=== PATIENT | male | born 1985 ===

== ENCOUNTER 2022-11-05 16:30 | Emergency (ER) | payer OTHER, SELFPAY ==
[2022-11-05] VITALS (22 sets, daily range): BP systolic 111–141; BP diastolic 58–79; PULSE 90–122; RESP 16–24; TEMP 36.5; O2SAT 95–100; BMI 31.4
--- NOTE | 2022-11-05 16:43 | DI.RAD.S_ITS ---
PROCEDURE: XR CHEST 1V INDICATIONS: chest pain TECHNIQUE: One view of the chest was acquired. COMPARISON: None. FINDINGS: Surgical changes and devices: None. Lungs and pleura: Lungs are clear. No pleural effusions or pneumothorax. Mediastinum: Mediastinal contours appear normal. Heart size is normal. Bones and chest wall: No suspicious bony lesions. Overlying soft tissues appear unremarkable. IMPRESSION: No acute cardiopulmonary pathology. Dictated by: Dany Navarro M.D. on 11/05/2022 at 17:04 Approved by: Dany Navarro M.D. on 11/05/2022 at 17:05
--- NOTE | 2022-11-05 17:07 | ED_ITS ---
HPI - Chest Pain <Boby Vail DO - Last Filed: 11/07/22 07:14> General Chief Complaint: Chest Pain Stated Complaint: IFP diarreah/SOB/PAIN LT SHOULDER TO LT HAND Time Seen by Provider: 11/05/22 17:03 Source: patient Mode of arrival: Wheelchair Limitations: no limitations History of Present Illness HPI narrative: patient is a 37-year-old male who is brought over from the walk-in clinic for evaluation of diarrhea and shortness of breath and pain in the left side of his chest and tingling to his left hand. States he is still feeling nauseous. No vomiting. No rashes. No recent travel. Otherwise healthy. Has not tried anything for symptoms prior to arrival. Related Data Home Medications Medication Instructions Recorded Confirmed lisdexamfetamine 30 mg capsule 30 mg PO QAM 06/26/21 06/26/21 (Vyvanse) Previous Rx's Medication Instructions Recorded ondansetron 4 mg disintegrating 4 mg PO TID-QID PRN nausea and 11/05/22 tablet vomiting #10 tabs pantoprazole 40 mg tablet,delayed 40 mg PO DAILY #30 tabs 11/05/22 release (Protonix) Allergies Allergy/AdvReac Type Severity Reaction Status Date / Time No Known Drug Allergies Allergy Verified 11/05/22 16:45 Review of Systems <DO Arjun Edwards Last Filed: 11/07/22 07:14> Constitutional Constitutional: Reports system reviewed and no additional complaints, except as documented Cardiovascular Cardiovascular: Reports system reviewed and no additional complaints, except as documented Respiratory Respiratory: Reports system reviewed and no additional complaints, except as documented Gastrointestinal Gastrointestinal: Reports system reviewed and no additional complaints, except as documented Integumentary/Breasts Skin/Breast: Reports system reviewed and no additional complaints, except as documented Neurologic Neurologic: Reports system reviewed and no additional complaints, except as documented Hematologic/Lymphatic On Anticoagulants: No Patient History <DO Arjun Edwards Last Filed: 11/07/22 07:14> Social History Smoking Status: Never smoker Smoking Status: Never smoker alcohol intake frequency: holidays/special occasions only Substance Use Type: does not use Exam <DO Arjun Edwards Last Filed: 11/07/22 07:14> Initial Vital Signs Initial Vital Signs: Vital Signs Temperature 97.7 F 11/05/22 16:40 Pulse Rate 122 H 11/05/22 16:40 Respiratory Rate 16 11/05/22 16:40 Blood Pressure 118/74 11/05/22 16:40 Pulse Oximetry 98 11/05/22 16:40 Oxygen Delivery Method Room Air 11/05/22 16:40 Const General: cooperative and well developed HENNJ Head: normal to inspection and normocephalic Resp Effort & Inspection: normal respiratory effort Auscultation: clear to auscultation bilaterally Cardio Rate: tachycardic GI Inspection: normal to inspection Skin General: no rashes or lesions noted Neuro General: patient alert, patient awake and moves all extremities Extrem General: normal to inspection and capillary refill normal <Danial Murillo DO - Last Filed: 11/05/22 22:22> Initial Vital Signs Initial Vital Signs: Vital Signs Temperature 97.7 F 11/05/22 16:40 Pulse Rate 122 H 11/05/22 16:40 Respiratory Rate 16 11/05/22 16:40 Blood Pressure 118/74 11/05/22 16:40 Pulse Oximetry 98 11/05/22 16:40 Oxygen Delivery Method Room Air 11/05/22 16:40 Scores <Boby Vail DO - Last Filed: 11/07/22 07:14> HEART Score Heart Score Total: 0 <DO Arjun Banuelos Last Filed: 11/05/22 22:22> HEART Score Heart Score history: Slightly Suspicious Heart Score EKG: Normal Heart Score Age: < 45 years old Heart Score risk factors: No known risk factors Heart Score troponin: < or = to normal limit Heart Score Total: 0 Course <DO Arjun Edwards Last Filed: 11/07/22 07:14> Orders Ordered: Discontinued Medications Aspirin (Aspirin 81 Mg Chew Tab) 324 mg PO NOW ONE Stop: 11/05/22 16:44 Last Admin: 11/05/22 18:05 Dose: Not Given Documented By: MIGUEL Sodium Chloride (Normal Saline 0.9%) 1,000 mls @ 1,000 mls/hr IV BOLUS ONE Stop: 11/05/22 18:05 Last Infusion: 11/05/22 19:25 Dose: 0 mls/hr Documented By: Admin: 11/05/22 18:04 Dose: 1,000 mls/hr Documented By: MIGUEL(2) Lactated Ringer's (Lactated Ringers) 1,000 mls @ 1,000 mls/hr IV BOLUS ONE Stop: 11/05/22 22:02 Last Infusion: 11/05/22 22:19 Dose: 0 mls/hr Documented By: Admin: 11/05/22 21:14 Dose: 1,000 mls/hr Documented By: SHAJI Ondansetron HCl (Ondansetron 4 Mg/2 Ml Inj) 4 mg IV NOW ONE Stop: 11/05/22 17:07 Last Admin: 11/05/22 18:03 Dose: 4 mg Documented By: MIGUEL(2) Vital Signs Vital signs: Vital Signs - 8 hr 11/05/22 16:40 11/05/22 17:02 11/05/22 17:03 Temperature 97.7 F Pulse Rate 122 H 109 H Respiratory Rate 16 18 Blood Pressure 118/74 141/79 H Pulse Oximetry 98 96 Oxygen Delivery Method Room Air 11/05/22 17:03 11/05/22 17:30 11/05/22 17:30 Temperature Pulse Rate 109 H 107 H Respiratory Rate 23 24 Blood Pressure 125/69 Pulse Oximetry 95 96 Oxygen Delivery Method 11/05/22 17:58 11/05/22 17:58 11/05/22 18:00 Temperature Pulse Rate 106 H Respiratory Rate 24 Blood Pressure 116/77 122/78 Pulse Oximetry 97 Oxygen Delivery Method 11/05/22 18:00 11/05/22 18:15 11/05/22 18:15 Temperature Pulse Rate 105 H 108 H Respiratory Rate 23 22 Blood Pressure 121/74 Pulse Oximetry 96 97 Oxygen Delivery Method 11/05/22 18:30 11/05/22 18:30 11/05/22 18:45 Temperature Pulse Rate 104 H 105 H Respiratory Rate 24 24 Blood Pressure 131/78 Pulse Oximetry 97 97 Oxygen Delivery Method 11/05/22 18:45 11/05/22 19:00 11/05/22 19:00 Temperature Pulse Rate 99 H Respiratory Rate 23 Blood Pressure 128/71 133/76 Pulse Oximetry 98 Oxygen Delivery Method 11/05/22 19:15 11/05/22 19:15 11/05/22 19:30 Temperature Pulse Rate 98 H Respiratory Rate Blood Pressure 124/67 124/71 Pulse Oximetry 99 Oxygen Delivery Method 11/05/22 19:30 11/05/22 19:45 11/05/22 19:45 Temperature Pulse Rate 96 H 99 H Respiratory Rate 20 23 Blood Pressure 111/65 Pulse Oximetry 100 99 Oxygen Delivery Method 11/05/22 20:00 11/05/22 20:00 11/05/22 20:15 Temperature Pulse Rate 98 H 90 Respiratory Rate 23 24 Blood Pressure 113/69 Pulse Oximetry 99 98 Oxygen Delivery Method 11/05/22 20:15 11/05/22 20:30 11/05/22 20:30 Temperature Pulse Rate 103 H Respiratory Rate 24 Blood Pressure 118/65 120/68 Pulse Oximetry 99 Oxygen Delivery Method 11/05/22 20:45 11/05/22 20:45 11/05/22 21:00 Temperature Pulse Rate 102 H Respiratory Rate 24 Blood Pressure 117/68 119/69 Pulse Oximetry 98 Oxygen Delivery Method Room Air 11/05/22 21:00 11/05/22 21:15 11/05/22 21:15 Temperature Pulse Rate 102 H 105 H Respiratory Rate 24 21 Blood Pressure 113/58 L Pulse Oximetry 98 98 Oxygen Delivery Method 11/05/22 21:30 11/05/22 21:30 11/05/22 21:45 Temperature Pulse Rate 100 H 97 H Respiratory Rate 19 24 Blood Pressure 116/67 Pulse Oximetry 99 99 Oxygen Delivery Method Room Air 11/05/22 21:45 11/05/22 22:00 11/05/22 22:00 Temperature Pulse Rate 97 H Respiratory Rate 24 Blood Pressure 119/68 117/69 Pulse Oximetry 99 Oxygen Delivery Method Room Air <Danial Murillo DO - Last Filed: 11/05/22 22:22> Orders Ordered: Discontinued Medications Aspirin (Aspirin 81 Mg Chew Tab) 324 mg PO NOW ONE Stop: 11/05/22 16:44 Last Admin: 11/05/22 18:05 Dose: Not Given Documented By: MIGUEL Sodium Chloride (Normal Saline 0.9%) 1,000 mls @ 1,000 mls/hr IV BOLUS ONE Stop: 11/05/22 18:05 Last Infusion: 11/05/22 19:25 Dose: 0 mls/hr Documented By: Admin: 11/05/22 18:04 Dose: 1,000 mls/hr Documented By: MIGUEL(2) Lactated Ringer's (Lactated Ringers) 1,000 mls @ 1,000 mls/hr IV BOLUS ONE Stop: 11/05/22 22:02 Last Infusion: 11/05/22 22:19 Dose: 0 mls/hr Documented By: Admin: 11/05/22 21:14 Dose: 1,000 mls/hr Documented By: SHAJI Ondansetron HCl (Ondansetron 4 Mg/2 Ml Inj) 4 mg IV NOW ONE Stop: 11/05/22 17:07 Last Admin: 11/05/22 18:03 Dose: 4 mg Documented By: MIGUEL(2) Vital Signs Vital signs: Vital Signs - 8 hr 11/05/22 16:40 11/05/22 17:02 11/05/22 17:03 Temperature 97.7 F Pulse Rate 122 H 109 H Respiratory Rate 16 18 Blood Pressure 118/74 141/79 H Pulse Oximetry 98 96 Oxygen Delivery Method Room Air 11/05/22 17:03 11/05/22 17:30 11/05/22 17:30 Temperature Pulse Rate 109 H 107 H Respiratory Rate 23 24 Blood Pressure 125/69 Pulse Oximetry 95 96 Oxygen Delivery Method 11/05/22 17:58 11/05/22 17:58 11/05/22 18:00 Temperature Pulse Rate 106 H Respiratory Rate 24 Blood Pressure 116/77 122/78 Pulse Oximetry 97 Oxygen Delivery Method 11/05/22 18:00 11/05/22 18:15 11/05/22 18:15 Temperature Pulse Rate 105 H 108 H Respiratory Rate 23 22 Blood Pressure 121/74 Pulse Oximetry 96 97 Oxygen Delivery Method 11/05/22 18:30 11/05/22 18:30 11/05/22 18:45 Temperature Pulse Rate 104 H 105 H Respiratory Rate 24 24 Blood Pressure 131/78 Pulse Oximetry 97 97 Oxygen Delivery Method 11/05/22 18:45 11/05/22 19:00 11/05/22 19:00 Temperature Pulse Rate 99 H Respiratory Rate 23 Blood Pressure 128/71 133/76 Pulse Oximetry 98 Oxygen Delivery Method 11/05/22 19:15 11/05/22 19:15 11/05/22 19:30 Temperature Pulse Rate 98 H Respiratory Rate Blood Pressure 124/67 124/71 Pulse Oximetry 99 Oxygen Delivery Method 11/05/22 19:30 11/05/22 19:45 11/05/22 19:45 Temperature Pulse Rate 96 H 99 H Respiratory Rate 20 23 Blood Pressure 111/65 Pulse Oximetry 100 99 Oxygen Delivery Method 11/05/22 20:00 11/05/22 20:00 11/05/22 20:15 Temperature Pulse Rate 98 H 90 Respiratory Rate 23 24 Blood Pressure 113/69 Pulse Oximetry 99 98 Oxygen Delivery Method 11/05/22 20:15 11/05/22 20:30 11/05/22 20:30 Temperature Pulse Rate 103 H Respiratory Rate 24 Blood Pressure 118/65 120/68 Pulse Oximetry 99 Oxygen Delivery Method 11/05/22 20:45 11/05/22 20:45 11/05/22 21:00 Temperature Pulse Rate 102 H Respiratory Rate 24 Blood Pressure 117/68 119/69 Pulse Oximetry 98 Oxygen Delivery Method Room Air 11/05/22 21:00 11/05/22 21:15 11/05/22 21:15 Temperature Pulse Rate 102 H 105 H Respiratory Rate 24 21 Blood Pressure 113/58 L Pulse Oximetry 98 98 Oxygen Delivery Method 11/05/22 21:30 11/05/22 21:30 11/05/22 21:45 Temperature Pulse Rate 100 H 97 H Respiratory Rate 19 24 Blood Pressure 116/67 Pulse Oximetry 99 99 Oxygen Delivery Method Room Air 11/05/22 21:45 11/05/22 22:00 11/05/22 22:00 Temperature Pulse Rate 97 H Respiratory Rate 24 Blood Pressure 119/68 117/69 Pulse Oximetry 99 Oxygen Delivery Method Room Air MDM - Chest Pain <Boby Vail DO - Last Filed: 11/07/22 07:14> Lab Data Attestation: I reviewed the patient's lab results. 11/05/22 16:51 11/05/22 16:51 Labs: Lab Results 11/05/22 11/05/22 11/05/22 Range/Units 16:51 16:51 16:51 WBC 7.7 (4.5-11.0) X10^3/uL RBC 5.38 (4.5-5.9) X10^6/uL Hgb 16.2 (13.5-17.5) g/dL Hct 45.9 (41-53) % MCV 85.4 (80-100) fL MCH 30.1 (26-34) PG MCHC 35.3 (30-36) % RDW 13.2 (11.6-14.8) % Plt Count 189 (150-400) X10^3/uL Neut % (Auto) 78.2 H (50-75) % Lymph % (Auto) 14.5 L (25-40) % [place] % (Auto) 5.9 (3-14) % Eos % (Auto) 0.4 L (2-4) % Baso % (Auto) 1.0 (0-2) % Neut # (Auto) 6000 (6740-2097) /uL Lymph # (Auto) 1100 (0965-4177) /uL [place] # (Auto) 500 (0-900) /uL Eos # (Auto) 0 (0-450) /uL Baso # (Auto) 100 (0-100) /uL PT 12.4 (10.1-12.7) SECONDS INR 1.1 (0.9-1.3) APTT 31 (26-36) SECONDS D-Dimer (<500) ng/ml Sodium 136 L (137-145) mmol/L Potassium 3.7 (3.4-5.1) mmol/L Chloride 100 (98-107) mmol/L Carbon Dioxide 22 (22-32) mmol/L BUN 17 (9-20) mg/dL Creatinine 1.37 H (0.66-1.25) mg/dL Estimated GFR > 60 (>60) mL/min BUN/Creatinine Ratio 12.4 (6-22) Glucose 107 H (70-100) mg/dL Calcium 9.2 (8.4-10.2) mg/dL Magnesium 1.7 (1.6-2.3) mg/dL Total Bilirubin 1.5 H (0.2-1.3) mg/dL AST 27 (17-59) IU/L ALT 36 (<50) IU/L Alkaline Phosphatase 67 (38-126) U/L Total Creatine Kinase 59 (55-170) U/L CK-MB (CK-2) TNP CK-MB (CK-2) Rel Index TNP Troponin I < 0.012 (0.01-0.034) ng/mL Total Protein 7.6 (6.3-8.2) g/dL Albumin 4.8 (3.5-5.0) g/dL Globulin 2.8 (1.7-4.1) g/dL Albumin/Globulin Ratio 1.7 (1.0-2.8) Lipase 63 (23-300) U/L Stl C. cayetanensis PCR (Not Detect) Stool Rotavirus (PCR) (Not Detect) Stool Adenovirus (PCR) (Not Detect) Stool Astrovirus (PCR) (Not Detect) Stool Cryptosporidium PCR (Not Detect) Stl E.coli Shiga Tox PCR (Not Detect) St Sh/Enteroin Ecoli PCR Stool E coli O157 PCR (Not Detect) Stl Enterotoxigenic E PCR (Not Detect) Stool EPEC (PCR) (Not Detect) Stl E. histolytica PCR (Not Detect) Stool Giardia Lamblia PCR (Not Detect) Stool Sapovirus (PCR) (Not Detect) Stl P. shigelloides PCR (Not Detect) St Y.enterocolitica PCR (Not Detect) Stool Vibrio (PCR) (Not Detect) Stl Vibrio cholerae PCR (Not Detect) Stl Enteroaggr Ecoli PCR (Not Detect) Stl Norovirus GI/GII PCR (Not Detect) Campylobacter (PCR) (Not Detect) C. difficile Tox (PCR) (Not Detect) SARS-CoV-2 (PCR) (Negative) Salmonella (PCR) (Not Detect) 11/05/22 11/05/22 11/05/22 Range/Units 17:40 19:20 21:15 WBC (4.5-11.0) X10^3/uL RBC (4.5-5.9) X10^6/uL Hgb (13.5-17.5) g/dL Hct (41-53) % MCV (80-100) fL MCH (26-34) PG MCHC (30-36) % RDW (11.6-14.8) % Plt Count (150-400) X10^3/uL Neut % (Auto) (50-75) % Lymph % (Auto) (25-40) % [place] % (Auto) (3-14) % Eos % (Auto) (2-4) % Baso % (Auto) (0-2) % Neut # (Auto) (1797-9906) /uL Lymph # (Auto) (6816-5445) /uL [place] # (Auto) (0-900) /uL Eos # (Auto) (0-450) /uL Baso # (Auto) (0-100) /uL PT (10.1-12.7) SECONDS INR (0.9-1.3) APTT (26-36) SECONDS D-Dimer 391 (<500) ng/ml Sodium (137-145) mmol/L Potassium (3.4-5.1) mmol/L Chloride (98-107) mmol/L Carbon Dioxide (22-32) mmol/L BUN (9-20) mg/dL Creatinine (0.66-1.25) mg/dL Estimated GFR (>60) mL/min BUN/Creatinine Ratio (6-22) Glucose (70-100) mg/dL Calcium (8.4-10.2) mg/dL Magnesium (1.6-2.3) mg/dL Total Bilirubin (0.2-1.3) mg/dL AST (17-59) IU/L ALT (<50) IU/L Alkaline Phosphatase (38-126) U/L Total Creatine Kinase (55-170) U/L CK-MB (CK-2) CK-MB (CK-2) Rel Index Troponin I (0.01-0.034) ng/mL Total Protein (6.3-8.2) g/dL Albumin (3.5-5.0) g/dL Globulin (1.7-4.1) g/dL Albumin/Globulin Ratio (1.0-2.8) Lipase (23-300) U/L Stl C. cayetanensis PCR Not detected (Not Detect) Stool Rotavirus (PCR) Detected H (Not Detect) Stool Adenovirus (PCR) Not detected (Not Detect) Stool Astrovirus (PCR) Not detected (Not Detect) Stool Cryptosporidium PCR Not detected (Not Detect) Stl E.coli Shiga Tox PCR Not detected (Not Detect) St Sh/Enteroin Ecoli PCR Not Reportable Stool E coli O157 PCR Not detected (Not Detect) Stl Enterotoxigenic E PCR Not detected (Not Detect) Stool EPEC (PCR) Not detected (Not Detect) Stl E. histolytica PCR Not detected (Not Detect) Stool Giardia Lamblia PCR Not detected (Not Detect) Stool Sapovirus (PCR) Not detected (Not Detect) Stl P. shigelloides PCR Not detected (Not Detect) St Y.enterocolitica PCR Not detected (Not Detect) Stool Vibrio (PCR) Not detected (Not Detect) Stl Vibrio cholerae PCR Not detected (Not Detect) Stl Enteroaggr Ecoli PCR Not detected (Not Detect) Stl Norovirus GI/GII PCR Not detected (Not Detect) Campylobacter (PCR) Not detected (Not Detect) C. difficile Tox (PCR) Not detected (Not Detect) SARS-CoV-2 (PCR) Negative (Negative) Salmonella (PCR) Not detected (Not Detect) 11/05/22 Range/Units 21:15 WBC (4.5-11.0) X10^3/uL RBC (4.5-5.9) X10^6/uL Hgb (13.5-17.5) g/dL Hct (41-53) % MCV (80-100) fL MCH (26-34) PG MCHC (30-36) % RDW (11.6-14.8) % Plt Count (150-400) X10^3/uL Neut % (Auto) (50-75) % Lymph % (Auto) (25-40) % [place] % (Auto) (3-14) % Eos % (Auto) (2-4) % Baso % (Auto) (0-2) % Neut # (Auto) (5052-5885) /uL Lymph # (Auto) (4930-6933) /uL [place] # (Auto) (0-900) /uL Eos # (Auto) (0-450) /uL Baso # (Auto) (0-100) /uL PT (10.1-12.7) SECONDS INR (0.9-1.3) APTT (26-36) SECONDS D-Dimer (<500) ng/ml Sodium (137-145) mmol/L Potassium (3.4-5.1) mmol/L Chloride (98-107) mmol/L Carbon Dioxide (22-32) mmol/L BUN (9-20) mg/dL Creatinine (0.66-1.25) mg/dL Estimated GFR (>60) mL/min BUN/Creatinine Ratio (6-22) Glucose (70-100) mg/dL Calcium (8.4-10.2) mg/dL Magnesium (1.6-2.3) mg/dL Total Bilirubin (0.2-1.3) mg/dL AST (17-59) IU/L ALT (<50) IU/L Alkaline Phosphatase (38-126) U/L Total Creatine Kinase 43 L (55-170) U/L CK-MB (CK-2) TNP CK-MB (CK-2) Rel Index TNP Troponin I < 0.012 (0.01-0.034) ng/mL Total Protein (6.3-8.2) g/dL Albumin (3.5-5.0) g/dL Globulin (1.7-4.1) g/dL Albumin/Globulin Ratio (1.0-2.8) Lipase (23-300) U/L Stl C. cayetanensis PCR (Not Detect) Stool Rotavirus (PCR) (Not Detect) Stool Adenovirus (PCR) (Not Detect) Stool Astrovirus (PCR) (Not Detect) Stool Cryptosporidium PCR (Not Detect) Stl E.coli Shiga Tox PCR (Not Detect) St Sh/Enteroin Ecoli PCR Stool E coli O157 PCR (Not Detect) Stl Enterotoxigenic E PCR (Not Detect) Stool EPEC (PCR) (Not Detect) Stl E. histolytica PCR (Not Detect) Stool Giardia Lamblia PCR (Not Detect) Stool Sapovirus (PCR) (Not Detect) Stl P. shigelloides PCR (Not Detect) St Y.enterocolitica PCR (Not Detect) Stool Vibrio (PCR) (Not Detect) Stl Vibrio cholerae PCR (Not Detect) Stl Enteroaggr Ecoli PCR (Not Detect) Stl Norovirus GI/GII PCR (Not Detect) Campylobacter (PCR) (Not Detect) C. difficile Tox (PCR) (Not Detect) SARS-CoV-2 (PCR) (Negative) Salmonella (PCR) (Not Detect) Imaging Data Chest x-ray: Radiologist's Impression: PROCEDURE:? XR CHEST 1V ? INDICATIONS:? chest pain ? TECHNIQUE:? One view of the chest was acquired.? ? COMPARISON:? None. ? FINDINGS:? ? Surgical changes and devices:? None.? ? Lungs and pleura:? Lungs are clear.? No pleural effusions or pneumothorax.? ? Mediastinum:? Mediastinal contours appear normal.? Heart size is normal.? ? Bones and chest wall:? No suspicious bony lesions.? Overlying soft tissues appear unremarkable.? ? IMPRESSION:? No acute cardiopulmonary pathology. ECG Data Attestation: I personally reviewed and interpreted this ECG as follows: Interpretation: Sinus tachycardia Ventricular rate 116 Normal QRS Normal QTC No ST T wave changes MDM Narrative Medical decision making narrative: Patient is well-appearing. His tachycardic. Is nauseous. Troponins negative. EKG other the mean tachycardic is unremarkable. Patient received Zofran and fluids afterwards he stated that he feels much better. Care turned over to Dr. Murillo to continue to evaluate until fluids administered inpatient can tolerate oral intake. <Danial Murillo, DO - Last Filed: 11/05/22 22:22> Lab Data Labs: Lab Results 11/05/22 11/05/22 11/05/22 Range/Units 16:51 16:51 16:51 WBC 7.7 (4.5-11.0) X10^3/uL RBC 5.38 (4.5-5.9) X10^6/uL Hgb 16.2 (13.5-17.5) g/dL Hct 45.9 (41-53) % MCV 85.4 (80-100) fL MCH 30.1 (26-34) PG MCHC 35.3 (30-36) % RDW 13.2 (11.6-14.8) % Plt Count 189 (150-400) X10^3/uL Neut % (Auto) 78.2 H (50-75) % Lymph % (Auto) 14.5 L (25-40) % [place] % (Auto) 5.9 (3-14) % Eos % (Auto) 0.4 L (2-4) % Baso % (Auto) 1.0 (0-2) % Neut # (Auto) 6000 (6244-6648) /uL Lymph # (Auto) 1100 (0287-7693) /uL [place] # (Auto) 500 (0-900) /uL Eos # (Auto) 0 (0-450) /uL Baso # (Auto) 100 (0-100) /uL PT 12.4 (10.1-12.7) SECONDS INR 1.1 (0.9-1.3) APTT 31 (26-36) SECONDS D-Dimer (<500) ng/ml Sodium 136 L (137-145) mmol/L Potassium 3.7 (3.4-5.1) mmol/L Chloride 100 (98-107) mmol/L Carbon Dioxide 22 (22-32) mmol/L BUN 17 (9-20) mg/dL Creatinine 1.37 H (0.66-1.25) mg/dL Estimated GFR > 60 (>60) mL/min BUN/Creatinine Ratio 12.4 (6-22) Glucose 107 H (70-100) mg/dL Calcium 9.2 (8.4-10.2) mg/dL Magnesium 1.7 (1.6-2.3) mg/dL Total Bilirubin 1.5 H (0.2-1.3) mg/dL AST 27 (17-59) IU/L ALT 36 (<50) IU/L Alkaline Phosphatase 67 (38-126) U/L Total Creatine Kinase 59 (55-170) U/L CK-MB (CK-2) TNP CK-MB (CK-2) Rel Index TNP Troponin I < 0.012 (0.01-0.034) ng/mL Total Protein 7.6 (6.3-8.2) g/dL Albumin 4.8 (3.5-5.0) g/dL Globulin 2.8 (1.7-4.1) g/dL Albumin/Globulin Ratio 1.7 (1.0-2.8) Lipase 63 (23-300) U/L Stl C. cayetanensis PCR (Not Detect) Stool Rotavirus (PCR) (Not Detect) Stool Adenovirus (PCR) (Not Detect) Stool Astrovirus (PCR) (Not Detect) Stool Cryptosporidium PCR (Not Detect) Stl E.coli Shiga Tox PCR (Not Detect) St Sh/Enteroin Ecoli PCR Stool E coli O157 PCR (Not Detect) Stl Enterotoxigenic E PCR (Not Detect) Stool EPEC (PCR) (Not Detect) Stl E. histolytica PCR (Not Detect) Stool Giardia Lamblia PCR (Not Detect) Stool Sapovirus (PCR) (Not Detect) Stl P. shigelloides PCR (Not Detect) St Y.enterocolitica PCR (Not Detect) Stool Vibrio (PCR) (Not Detect) Stl Vibrio cholerae PCR (Not Detect) Stl Enteroaggr Ecoli PCR (Not Detect) Stl Norovirus GI/GII PCR (Not Detect) Campylobacter (PCR) (Not Detect) C. difficile Tox (PCR) (Not Detect) SARS-CoV-2 (PCR) (Negative) Salmonella (PCR) (Not Detect) 11/05/22 11/05/22 11/05/22 Range/Units 17:40 19:20 21:15 WBC (4.5-11.0) X10^3/uL RBC (4.5-5.9) X10^6/uL Hgb (13.5-17.5) g/dL Hct (41-53) % MCV (80-100) fL MCH (26-34) PG MCHC (30-36) % RDW (11.6-14.8) % Plt Count (150-400) X10^3/uL Neut % (Auto) (50-75) % Lymph % (Auto) (25-40) % [place] % (Auto) (3-14) % Eos % (Auto) (2-4) % Baso % (Auto) (0-2) % Neut # (Auto) (7814-1409) /uL Lymph # (Auto) (6124-6841) /uL [place] # (Auto) (0-900) /uL Eos # (Auto) (0-450) /uL Baso # (Auto) (0-100) /uL PT (10.1-12.7) SECONDS INR (0.9-1.3) APTT (26-36) SECONDS D-Dimer 391 (<500) ng/ml Sodium (137-145) mmol/L Potassium (3.4-5.1) mmol/L Chloride (98-107) mmol/L Carbon Dioxide (22-32) mmol/L BUN (9-20) mg/dL Creatinine (0.66-1.25) mg/dL Estimated GFR (>60) mL/min BUN/Creatinine Ratio (6-22) Glucose (70-100) mg/dL Calcium (8.4-10.2) mg/dL Magnesium (1.6-2.3) mg/dL Total Bilirubin (0.2-1.3) mg/dL AST (17-59) IU/L ALT (<50) IU/L Alkaline Phosphatase (38-126) U/L Total Creatine Kinase (55-170) U/L CK-MB (CK-2) CK-MB (CK-2) Rel Index Troponin I (0.01-0.034) ng/mL Total Protein (6.3-8.2) g/dL Albumin (3.5-5.0) g/dL Globulin (1.7-4.1) g/dL Albumin/Globulin Ratio (1.0-2.8) Lipase (23-300) U/L Stl C. cayetanensis PCR Not detected (Not Detect) Stool Rotavirus (PCR) Detected H (Not Detect) Stool Adenovirus (PCR) Not detected (Not Detect) Stool Astrovirus (PCR) Not detected (Not Detect) Stool Cryptosporidium PCR Not detected (Not Detect) Stl E.coli Shiga Tox PCR Not detected (Not Detect) St Sh/Enteroin Ecoli PCR Not Reportable Stool E coli O157 PCR Not detected (Not Detect) Stl Enterotoxigenic E PCR Not detected (Not Detect) Stool EPEC (PCR) Not detected (Not Detect) Stl E. histolytica PCR Not detected (Not Detect) Stool Giardia Lamblia PCR Not detected (Not Detect) Stool Sapovirus (PCR) Not detected (Not Detect) Stl P. shigelloides PCR Not detected (Not Detect) St Y.enterocolitica PCR Not detected (Not Detect) Stool Vibrio (PCR) Not detected (Not Detect) Stl Vibrio cholerae PCR Not detected (Not Detect) Stl Enteroaggr Ecoli PCR Not detected (Not Detect) Stl Norovirus GI/GII PCR Not detected (Not Detect) Campylobacter (PCR) Not detected (Not Detect) C. difficile Tox (PCR) Not detected (Not Detect) SARS-CoV-2 (PCR) Negative (Negative) Salmonella (PCR) Not detected (Not Detect) 11/05/22 Range/Units 21:15 WBC (4.5-11.0) X10^3/uL RBC (4.5-5.9) X10^6/uL Hgb (13.5-17.5) g/dL Hct (41-53) % MCV (80-100) fL MCH (26-34) PG MCHC (30-36) % RDW (11.6-14.8) % Plt Count (150-400) X10^3/uL Neut % (Auto) (50-75) % Lymph % (Auto) (25-40) % [place] % (Auto) (3-14) % Eos % (Auto) (2-4) % Baso % (Auto) (0-2) % Neut # (Auto) (8353-9461) /uL Lymph # (Auto) (3411-1966) /uL [place] # (Auto) (0-900) /uL Eos # (Auto) (0-450) /uL Baso # (Auto) (0-100) /uL PT (10.1-12.7) SECONDS INR (0.9-1.3) APTT (26-36) SECONDS D-Dimer (<500) ng/ml Sodium (137-145) mmol/L Potassium (3.4-5.1) mmol/L Chloride (98-107) mmol/L Carbon Dioxide (22-32) mmol/L BUN (9-20) mg/dL Creatinine (0.66-1.25) mg/dL Estimated GFR (>60) mL/min BUN/Creatinine Ratio (6-22) Glucose (70-100) mg/dL Calcium (8.4-10.2) mg/dL Magnesium (1.6-2.3) mg/dL Total Bilirubin (0.2-1.3) mg/dL AST (17-59) IU/L ALT (<50) IU/L Alkaline Phosphatase (38-126) U/L Total Creatine Kinase 43 L (55-170) U/L CK-MB (CK-2) TNP CK-MB (CK-2) Rel Index TNP Troponin I < 0.012 (0.01-0.034) ng/mL Total Protein (6.3-8.2) g/dL Albumin (3.5-5.0) g/dL Globulin (1.7-4.1) g/dL Albumin/Globulin Ratio (1.0-2.8) Lipase (23-300) U/L Stl C. cayetanensis PCR (Not Detect) Stool Rotavirus (PCR) (Not Detect) Stool Adenovirus (PCR) (Not Detect) Stool Astrovirus (PCR) (Not Detect) Stool Cryptosporidium PCR (Not Detect) Stl E.coli Shiga Tox PCR (Not Detect) St Sh/Enteroin Ecoli PCR Stool E coli O157 PCR (Not Detect) Stl Enterotoxigenic E PCR (Not Detect) Stool EPEC (PCR) (Not Detect) Stl E. histolytica PCR (Not Detect) Stool Giardia Lamblia PCR (Not Detect) Stool Sapovirus (PCR) (Not Detect) Stl P. shigelloides PCR (Not Detect) St Y.enterocolitica PCR (Not Detect) Stool Vibrio (PCR) (Not Detect) Stl Vibrio cholerae PCR (Not Detect) Stl Enteroaggr Ecoli PCR (Not Detect) Stl Norovirus GI/GII PCR (Not Detect) Campylobacter (PCR) (Not Detect) C. difficile Tox (PCR) (Not Detect) SARS-CoV-2 (PCR) (Negative) Salmonella (PCR) (Not Detect) MDM Narrative Medical decision making narrative: Patient is well-appearing. His tachycardic. Is nauseous. Troponins negative. EKG other the mean tachycardic is unremarkable. Patient received Zofran and fluids afterwards he stated that he feels much better. Care turned over to Dr. Murillo to continue to evaluate until fluids administered inpatient can tolerate oral intake. [37] year old patient presents with multiple episodes of diarrhea burning epigastric Multiple etiologies for patient's symptoms considered including, but not limited to: [Infectious diarrhea, cardiac ischemia, sepsis, pulmonary embolism versus other] Prior Charts reviewed in our EMR Primary Historian: patient Labs reviewed and interpreted by myself: Stool notes rotavirus, otherwise labs are very reassuring, D-dimer below age corrected cough, troponin negative x2, electrolytes and kidney function within normal Imaging reviewed: Chest x-ray without acute findings Patient's symptoms improved over duration of stay with above-stated therapies. Patient tolerating orals, vitals have normalized, discomfort tolerated. Patient ambulatory in the department. Low risk chest pain with nonischemic EKG, troponin negative x2, low heart score. PE also considered but thought unlikely given negative D-dimer. Findings and discharge diagnosis discussed with patient/family followed by verbalization of understanding Return precautions discussed with patient/family whom verbalize understanding of diagnosis and plan Discharge Plan Departure Patient Disposition: Home Clinical Impression: Rotavirus enteritis Instructions: DI for Rotavirus -- Adult Activity Restrictions/Additional Instructions: *You have been diagnosed with [diarrhea and abdominal pain due to rotavirus * As we discussed your history and physical exam as well as labs and imaging are very reassuring. There is no evidence of any severe diagnoses that would require a specific or immediate intervention such as antibiotics *What to do: *Please continue to take your regular medications as directed. [x ] New medication prescriptions sent to your pharmacy: [[facility] ] *Please follow up with your primary care provider in 2-3 days, call for an appointment. Let them know you were seen in the Emergency Department and that we ask that you be seen in follow up. We will electronically transmit a record of today's note if your PCP is in our system *Please consider a clear liquid diet for the next 24-48 hours and then slowly advance to regular as tolerated. Also, try to avoid alcohol, nicotine, caffeine, spicy, acidic or fatty foods as this may worsen your symptoms *If you do not have a primary care provider please contact the [facility] Resource line at [phone]. They will ask some questions about your medical history and help get you set up with a doctor in the community. *Return to Emergency Department if you should have any new, worsening or concerning symptoms, such as [fever greater than 101 F, shaking chills, worsening pain, persistent vomiting or other bothersome symptoms] Prescriptions: New pantoprazole [Protonix] 40 mg tablet,delayed release (DR/EC) 40 mg PO DAILY Qty: 30 0RF ondansetron 4 mg tablet,disintegrating 4 mg PO TID-QID PRN (Reason: nausea and vomiting) Qty: 10 0RF No Action Vyvanse 30 mg capsule 30 mg PO QAM Stand Alone Forms: Patient Portal/API
[2022-11-05 17:09] LABS: Add Manual Diff / Slide Review NO; Basophils Absolute Auto 100 /uL (0-100); Eosinophils Absolute Auto 0 /uL (0-450); Eosinophils Percent Auto 0.4 % (2-4); Hematocrit 45.9 % (41-53); Hemoglobin 16.2 g/dL (13.5-17.5); Lymphocytes Absolute Auto 1100 /uL (1100-4500); Lymphocytes Percent Auto 14.5 % (25-40); Mean Corpuscular HGB Conc 35.3 % (30-36); Mean Corpuscular Hemoglobin 30.1 PG (26-34); Mean Corpuscular Volume 85.4 fL (80-100); Monocytes Absolute Auto 500 /uL (0-900); Monocytes Percent Auto 5.9 % (3-14); Neutrophils Absolute Auto 6000 /uL (1500-7000); Neutrophils Percent Auto 78.2 % (50-75); Platelet Count 189 X10^3/uL (150-400); Red Blood Cell Count 5.38 X10^6/uL (4.5-5.9); Red Cell Distribution Width 13.2 % (11.6-14.8); White Blood Cell Count 7.7 X10^3/uL (4.5-11.0)
[2022-11-05 17:25] LABS: INR 1.1 (0.9-1.3); Prothrombin Time 12.4 SECONDS (10.1-12.7)
[2022-11-05 17:28] LABS: PTT Partial Thromboplastin Tim 31 SECONDS (26-36)
[2022-11-05 17:37] LABS: Alanine Aminotransferase 36 IU/L (<50); Albumin 4.8 g/dL (3.5-5.0); Albumin Globulin Ratio 1.7 (1.0-2.8); Alkaline Phosphatase 67 U/L (38-126); Aspartate Aminotransferase 27 IU/L (17-59); BUN Creatinine Ratio 12.4 (6-22); Bilirubin Total 1.5 mg/dL (0.2-1.3); Blood Urea Nitrogen 17 mg/dL (9-20); Calcium 9.2 mg/dL (8.4-10.2); Carbon Dioxide 22 mmol/L (22-32); Chloride 100 mmol/L (98-107); Creatine Kinase 59 U/L (55-170); Estimated Glomerular Filt Rate > 60 mL/min (>60); Globulin 2.8 g/dL (1.7-4.1); Glucose 107 mg/dL (70-100); HEMOLYSIS < 15 (0-50); Lipase 63 U/L (23-300); Magnesium 1.7 mg/dL (1.6-2.3); Potassium 3.7 mmol/L (3.4-5.1); Sodium 136 mmol/L (137-145); Total Protein 7.6 g/dL (6.3-8.2)
[2022-11-05 17:47] LABS: Troponin I < 0.012 ng/mL (0.01-0.034)
[2022-11-05] MEDS: ONDANSETRON 4 MG/2 ML INJ IV (18:03)
[2022-11-05] MEDS: SODIUM CHLORIDE 0.9% 1,000 ML 1000 ML IV (18:04)
[2022-11-05 19:47] LABS: COVID19 -Nasal RAPID Negative (Negative)
[2022-11-05] MEDS: LACTATED RINGERS 1,000 ML 1000 ML IV (21:14)
[2022-11-05 21:39] LABS: D Dimer 391 ng/ml (<500)
[2022-11-05 21:44] LABS: Adenovirus F 40/41 Not Detected (Not Detect); Astrovirus Not Detected (Not Detect); Campylobacter Not Detected (Not Detect); Clostridium difficile toxin AB Not Detected (Not Detect); Cryptosporidium Not Detected (Not Detect); Cyclospora cayetanensis Not Detected (Not Detect); Entamoeba histolytica Not Detected (Not Detect); Enteroaggregative E.coli Not Detected (Not Detect); Enteropathogenic E.coli Not Detected (Not Detect); Enterotoxigenic E.coli It/st Not Detected (Not Detect); Giardia lamblia Not Detected (Not Detect); Norovirus GI/GII Not Detected (Not Detect); Plesiomonsa shigelloides Not Detected (Not Detect); Rotavirus A Detected (Not Detect); Salmonella Not Detected (Not Detect); Sapovirus Not Detected (Not Detect); Shiga-like toxin-prod E.coli Not Detected (Not Detect); Vibrio Not Detected (Not Detect); Vibrio cholerae Not Detected (Not Detect); Yersinia enterocolitica Not Detected (Not Detect)
[2022-11-05 21:44] LABS: Creatine Kinase 43 U/L (55-170)
[2022-11-05 21:56] LABS: Troponin I < 0.012 ng/mL (0.01-0.034)
== END 2022-11-05 22:25 | disposition home or self-care (01) ==
PROVIDERS: Emergency Medicine; Emergency Provider Emergency Medicine
DX: A08.0 Rotaviral enteritis (principal); R07.9 Chest pain, unspecified; R00.0 Tachycardia, unspecified; R19.7 Diarrhea, unspecified; R20.2 Paresthesia of skin; Z20.822 Contact with and (suspected) exposure to COVID-19
CPT/HCPCS: 36415; 71045; 80053; 82550; 83690; 83735; 84484; 85025; 85379; 85610; 85730; 87507; 87635; 93005; 96361; 96374; 99284; C9803; J2405